=== PATIENT | female | born 1995 ===

== ENCOUNTER 2024-10-04 08:19 | Outpatient (CLI) | payer OTHER | END 2024-10-04 08:22 | disposition home or self-care (01) | LOC: PRENATAL 08:19 | PROVIDERS: ATTEND Obstetrics & Gynecology Maternal & Fetal Medicine | DX: O36.80X0 Pregnancy with inconclusive fetal viability, not applicable or unspecified (principal); O28.3 Abnormal ultrasonic finding on antenatal screening of mother; O26.859 Spotting complicating pregnancy, unspecified trimester; Z3A.11 11 weeks gestation of pregnancy ==